=== PATIENT | female | born 1995 | race Caucasian/White ===

== ENCOUNTER 2024-09-26 12:56 | Day surgery (SDC) | payer OTHER ==
[~2024-09-26] VITALS: Ht 170.2 cm; Wt 79.7 kg
[~2024-09-26 12:56] MED LIST: ARIP1TAB6 PO; LEXA1TAB2 PO; QUET100T2 PO; SUBL300I SQ
[2024-09-26] MEDS ORDERED: LR 1,000 ML IV SCH ×2 (13:30→15:35)
[2024-09-26] MEDS ORDERED: ROCURONIUM BROMIDE 50MG/5ML VIAL As Ordered ONE (13:43)
[2024-09-26] MEDS ORDERED: propofoL 200 MG/20 ML VIAL As Ordered ONE (13:43)
[2024-09-26] MEDS ORDERED: ONDANSETRON 4MG 2ML VIAL As Ordered ONE (13:43)
[2024-09-26] MEDS ORDERED: MIDAZOLAM INJ 2MG/2ML VIAL As Ordered ONE (13:44)
[2024-09-26] MEDS ORDERED: LIDOCAINE 2% 100MG/5ML SDV (FOR ANES.) As Ordered ONE (13:44)
[2024-09-26] MEDS ORDERED: KETOROLAC 60MG 2ML VIAL As Ordered ONE (13:45)
[2024-09-26] MEDS ORDERED: ACETAMINOPHEN 1000MG/100ML IV BAG As Ordered ONE (13:54)
[2024-09-26] MEDS ORDERED: SUGAMMADEX SODIUM 500 MG/5 ML VIAL (BRIDION) As Ordered ONE (13:54)
[2024-09-26] MEDS: AMPICILLIN SOD/SULBACTAM SOD 3 GM in SODIUM CHLORIDE 0.9% 100ML ADD 100 ML IV ONE (15:09)
[2024-09-26] MEDS: LIDOCAINE 2% W/ EPINEPHRINE 1.7 ML DENTAL INJ As Ordered ONE (15:16)
[2024-09-26] MEDS: CHLORHEXIDINE GLUCONATE 0.12 % 15ML UDC (PERIDEX ORAL RINSE) As Ordered ONE (15:25)
[2024-09-26] MEDS ORDERED: oxyCODONE 5MG TAB PO PRN (15:35)
[2024-09-26] MEDS ORDERED: ONDANSETRON 4MG 2ML VIAL IV PRN (15:35)
[2024-09-26] MEDS ORDERED: METOCLOPRAMIDE INJ 10MG/2ML VIAL IV PRN (15:35)
[2024-09-26] MEDS ORDERED: HYDROMORPHONE HCL 0.5 MG/ 0.5 ML SYRINGE IV PRN (15:35)
[2024-09-26] MEDS ORDERED: fentaNYL 100 MCG/2 ML INJECTION IV PRN (15:35)
[2024-09-26 17:25] VITALS: BP 115/68; TEMP 97.7; O2SAT 98
== END 2024-09-26 17:35 | disposition home or self-care (01) ==
LOC: M SDC 12:56
PROVIDERS: ATTEND Dentist
DX: K02.9 Dental caries, unspecified (principal); F40.232 Fear of other medical care; F41.9 Anxiety disorder, unspecified; F32.A Depression, unspecified; F43.10 Post-traumatic stress disorder, unspecified; Z88.0 Allergy status to penicillin; Z79.899 Other long term (current) drug therapy
CPT/HCPCS: 81025; 88300; D7210; J0131; J0295; J1100; J1885; J2250; J2405